=== PATIENT | male | born 1980 ===

== ENCOUNTER → 2018-11-13 | Outpatient (REF) | payer OTHER ==
[2018-11-13 14:09] LABS: SEMEN APPEARANCE OPAQUE (OPAQUE)
[2018-11-13 14:10] LABS: SEMEN VISCOSITY LIQUID (LIQUID); SEMEN VOLUME 3.2 ml (4.0-5.0); SEMEN pH 8.5 (7.0-8.0); SPERM CONCENTRATION 33.6 M/ml (>=15.0); WBC CONCENTRATION >1 M/ml (<=1 M/ml)
== END ==
LOC: M LAB REF 13:56
PROVIDERS: ATTEND Obstetrics & Gynecology
DX: N46.8 Other male infertility (principal)

== ENCOUNTER → 2020-01-14 | Outpatient (REF) ==
[2020-01-14 15:57] LABS: APPEARANCE, BODY FLUID HAZY
[2020-01-14 16:00] LABS: CRYSTALS, BODY FLUID NONE SEEN (NONE SEEN); SOURCE, BODY FLUID CRYSTALS LFT KNEE
== END ==
LOC: M LAB REF 13:15
DX: Z00.00 Encounter for general adult medical examination without abnormal findings (principal)